=== PATIENT | male | born 1980 | race Caucasian/White ===

== ENCOUNTER 2016-06-14 20:28 | Inpatient (IN) | payer OTHER ==
[~2016-06-14] VITALS: Ht 165.1 cm; Wt 143.9 kg
[~2016-06-14 20:28] MED LIST: BISA-57 PO; DOCU-144 PO; FAMO20TA18 PO; HYDR-3498 PO; INSU100C SC; LANT3I SC; MTF1000T PO; ONDA4TAB35 PO; SIMV20TA PO
[2016-06-14] MEDS ORDERED: morphine 4 MG/ML VIAL IV STA (22:03)
[2016-06-14] MEDS ORDERED: SOD CHLORIDE 0.9% 1,000 ML IV STA (22:03)
[2016-06-14] MEDS ORDERED: ONDANSETRON 4 MG INJ IV STA (22:03)
[2016-06-14 22:42] LABS: URINE BLOOD (Dip) POC Negative (NEGATIVE)
[2016-06-14 23:13] LABS: BASOPHILS % 0.2 % (0.0-2.0); EOSINOPHILS % 0.2 % (0.0-7.0); HEMATOCRIT 40.2 % (42.0-52.0); HEMOGLOBIN 13.3 g/dl (14.0-18.0); LYMPHOCYTES # 1.3 10^3/ul (0.8-2.9); LYMPHOCYTES % 7.6 % (15.0-51.0); MEAN CORPUSCULAR HEMOGLOBIN 29.9 pg (29.0-33.0); MEAN CORPUSCULAR HGB CONC 33.2 g/dl (32.0-37.0); MEAN CORPUSCULAR VOLUME 89.9 fl (82.0-101.0); MEAN PLATELET VOLUME 9.6 fl (7.4-10.4); MONOCYTES % 5.7 % (0.0-11.0); NEUTROPHIL # 14.7 10^3/ul (1.6-7.5); NEUTROPHILS % 86.3 % (39.0-77.0); PLATELET COUNT 292 10^3/UL (140-440); RED BLOOD COUNT 4.47 10^6/ul (4.70-6.10); RED CELL DISTRIBUTION WIDTH 13.3 % (11.5-14.5)
[2016-06-14 23:26] LABS: CONDITION 1
[2016-06-14 23:28] LABS: ALBUMIN 3.6 g/dl (3.3-4.9)
[2016-06-14 23:29] LABS: POTASSIUM 3.9 mmol/L (3.5-5.1)
[2016-06-14 23:31] LABS: ALBUMIN/GLOBULIN RATIO 1.16; CREATININE 0.78 mg/dl (0.61-1.24); TOTAL PROTEIN 6.7 g/dl (6.1-8.1)
[2016-06-14 23:32] LABS: CALCIUM 9.4 mg/dl (8.4-10.2)
[2016-06-14] MEDS ORDERED: IOHEXOL 300MG/ML 150 ML BTL ONE (23:46)
--- NOTE | 2016-06-15 00:41 | RADRPT ---
PROCEDURE: CT Abdomen and Pelvis with IV contrast. CLINICAL INDICATION: Nausea and vomiting. TECHNIQUE: CT scan of the abdomen and pelvis with contrast was performed on a multidetector CT [facility]. The patient was scanned following the uncomplicated intravenous administration of 90 cc Omn ipaque-300 intravenous contrast material. Coronal and sagittal reformatted images were obtained fro m the axial source images. Images were reviewed on a high-resolution PACS workstation. Exam CTDlvol = 24 mGy and DLP = 1682 mGy-cm. COMPARISON: 10/21/2015 FINDINGS: There are multiple left upper quadrant surgical clips adjacent to the greater curvature of the stoma ch and pancreas. There is redemonstrated large ventral abdominal hernia containing both large and s mall bowel. There is dilatation of small bowel proximal to the hernia with air-fluid levels. There is a transition of dilated small bowel within the inferior aspect of the hernia consistent with a s mall bowel obstruction. There is mild small bowel wall thickening. The distal small bowel is josseline l in caliber to the cecum. The entire colon is collapsed including the transverse colon within the hernia. Appendix is normal caliber with small calcifications are residual contrast material. There is no evidence for appendicitis.. There is no evidence for diverticulitis. There is no free fluid. There is no lymphadenopathy. The liver is enlarged at 23.7 cm length.. No intrahepatic lesions are identified. The gallbladder h as been removed.. There is no definite biliary ductal dilation. Pancreas and spleen are unremarkabl e. There are no adrenal masses. The aorta is unremarkable. Kidneys are normal in appearance without hydronephrosis, mass or calculus. There is normal symmetri c homogeneous renal parenchymal enhancement. There is no perinephric collection. Ureters are of no rmal caliber in appearance. Urinary bladder is contracted. Limited evaluation lung bases unremarkable. There are degenerative changes of the lumbar spine. There is unchanged mild wedge compression fractu res of lower thoracic spine involving T11 and T12. IMPRESSION: 1. Large abdominal ventral hernia containing both small and large bowel. Associated small bowel ob struction with transition within the inferior aspect of the hernia sac. Proximal intra-abdominal sm all bowel dilatation with air-fluid levels and mild wall thickening. 2. No evidence for pneumatosis or free fluid. 3. No evidence for appendicitis or diverticulitis. 4. Enlarged fatty liver. 5. Status post cholecystectomy. 6. Unchanged mild wedge compression fractures of the lower thoracic spine. RPTAT: HMVK .Shiraz Westfall MD, Date Time Electronically viewed and signed by .Shiraz Westfall MD, on 06/15/2016 00:41 .K/
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
[2016-06-15] MEDS ORDERED: HYDROmorphONE 1 MG/ML SYG IV STA (01:10)
--- NOTE | 2016-06-15 01:21 | EN ---
Date/Time of Note Date/Time of Note DATE: 06/15/16 TIME: 01:21 ER Progress Note Patient admitted to hospitalist. Dr. Hernandez consulted for surgery RADHA SEPULVEDA Jun 15, 2016 01:21
[2016-06-15 02:55] VITALS: TEMP 98.4
[2016-06-15 04:00] VITALS: BP 118/68; PULSE 63; RESP 16; Ht 165.1 cm; Wt 143.9 kg
[2016-06-15] MEDS ORDERED: GABA100C14 PO (04:07)
[2016-06-15] MEDS ORDERED: TRAM50TA2 PO (04:07)
[2016-06-15] MEDS ORDERED: GLUCOSE GEL 15 GRAM TUBE BUCCAL PRN (04:30)
[2016-06-15] MEDS ORDERED: GLUCOSE GEL 15 GRAM TUBE PO PRN ×2 (04:30)
[2016-06-15] MEDS ORDERED: DEXTROSE 50% 50 ML SYRINGE IV PRN ×2 (04:30)
[2016-06-15] MEDS ORDERED: GLUCAGON 1 MG INJ IM PRN (04:30)
[2016-06-15] MEDS: ONDANSETRON 4 MG INJ IV PRN ×2 (04:31→12:57)
[2016-06-15] MEDS: DEXTROSE 5%-0.45% NACL 1,000 ML IV SCH ×3 (04:31→23:47)
[2016-06-15] MEDS: morphine 4 MG/ML VIAL IV PRN ×6 (04:31→20:50)
[2016-06-15] MEDS: INSULIN ASPART [NOVOLOG] 3 ML PEN SC SCH ×4 (06:00→23:47)
[2016-06-15] MEDS: ACCUCHECK XX SCH ×4 (06:04→23:47)
[2016-06-15] MEDS: LEVOFLOXACIN 500MG/D5W (PMX) 100 ML IVPB SCH (06:52)
[2016-06-15 07:50] VITALS: BP 102/55; RESP 18
[2016-06-15 08:08] LABS: BASOPHILS % 0.5 % (0.0-2.0); EOSINOPHILS # 0.1 10^3/ul (0.0-0.5); EOSINOPHILS % 1.1 % (0.0-7.0); HEMATOCRIT 37.1 % (42.0-52.0); HEMOGLOBIN 12.6 g/dl (14.0-18.0); LYMPHOCYTES % 22.8 % (15.0-51.0); MEAN CORPUSCULAR HEMOGLOBIN 30.4 pg (29.0-33.0); MEAN CORPUSCULAR HGB CONC 33.8 g/dl (32.0-37.0); MEAN CORPUSCULAR VOLUME 89.8 fl (82.0-101.0); MEAN PLATELET VOLUME 9.4 fl (7.4-10.4); MONOCYTE # 0.9 10^3/ul (0.3-0.9); MONOCYTES % 10.3 % (0.0-11.0); NEUTROPHIL # 5.7 10^3/ul (1.6-7.5); NEUTROPHILS % 65.3 % (39.0-77.0); PLATELET COUNT 268 10^3/UL (140-440); RED BLOOD COUNT 4.14 10^6/ul (4.70-6.10); RED CELL DISTRIBUTION WIDTH 13.2 % (11.5-14.5); UNCORRECTED WBC 8.7 10^3/ul (4.8-10.8); WHITE BLOOD COUNT 8.7 10^3/ul (4.8-10.8)
[2016-06-15 08:09] LABS: ALBUMIN 3.3 g/dl (3.3-4.9)
[2016-06-15 08:11] LABS: BILIRUBIN,INDIRECT 1.1 mg/dl (0-1.1); BILIRUBIN,TOTAL 1.1 mg/dl (0.2-1.3); CREATININE 0.66 mg/dl (0.61-1.24); POTASSIUM 3.5 mmol/L (3.5-5.1)
[2016-06-15 08:12] LABS: ALBUMIN/GLOBULIN RATIO 1.06; TOTAL PROTEIN 6.4 g/dl (6.1-8.1)
[2016-06-15 08:13] LABS: CALCIUM 8.6 mg/dl (8.4-10.2)
[2016-06-15 08:17] LABS: CONDITION 1
[2016-06-15] MEDS: FAMOTIDINE 20 MG INJ IV SCH ×2 (08:52→20:36)
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
--- NOTE | 2016-06-15 15:55 | PN ---
Date/Time of Note Date/Time of Note DATE: 06/15/16 TIME: 15:53 Assessment/Plan VTE Prophylaxis VTE Prophylaxis Intervention: SCD's Lines/Catheters IV [facility] Peripheral IV Urinary Cath still in place: No Assessment/Plan Chief Complaint/Hosp Course IMPRESSION: 1. Recurrent small bowel obstruction. General surgery has been consulted, NG tube, n.p.o. Follow general surgery recommendations 2. Abdominal pain secondary to above. 3. History of multiple abdominal surgeries. 4. Systemic inflammatory response syndrome with leukocytosis and tachycardia, likely stress-induced from bowel obstruction. Continue prophylactic IV antibiotics 5. History of type 2 diabetes. Continue insulin and insulin sliding scale, when patient is able to tolerate p.o. intake we will start the patient on low-carb diet 6. Dyslipidemia. 7. Morbid obesity with a BMI of 53. We will continue monitor patient closely for recommendation management treatment as clinical course Problems: Subjective 24 Hr Interval Summary Free Text/Dictation Patient continues to complain of having mild abdominal discomfort No nausea vomiting Exam/Review of Systems Vital Signs Vitals Vital Signs Date Time Temp Pulse Resp B/P Pulse Ox O2 Delivery O2 Flow Rate FiO2 06/15/16 07:50 97.8 64 18 102/55 99 06/15/16 04:00 Room Air Intake and Output 06/14/16 06/14/16 06/15/16 15:00 23:00 07:00 Intake Total 50 ml Balance 50 ml Exam General: The patient is morbidly obese, Not in acute distress. HEENT: Atraumatic, normocephalic. The pupils are equal and round . Neck: Supple with full range of motion. Chest: Normal expansion of the thorax during inspiration Lungs: Clear to auscultation bilaterally Heart: Normal S1-S2, Regular rhythm and rate. Abdomen: Soft , nontender, minimally distended , bowel sounds are present. Extremities: Normal to inspection, no edema no cyanosis Neurologic: Normal mental status,The patient is awake, alert and oriented . Results Result Diagram: 06/15/16 0707 06/15/16 0707 Results 24 hrs Laboratory Tests Test 06/14/16 20:47 06/14/16 22:43 06/14/16 23:00 06/15/16 06:01 Bedside Glucose 144 112 Bedside Urine Blood Negative Bedside Urine Glucose (UA) Negative Bedside Urine Ketones (LAB) Negative Bedside Urine Leukocyte Esterase (L Negative Bedside Urine Nitrite (LAB) Negative Bedside Urine Protein (LAB) 2+ H Bedside Urine pH (LAB) 5.5 Alanine Aminotransferase (ALT/SGPT) 42 Albumin 3.6 Albumin/Globulin Ratio 1.16 Alkaline Phosphatase 76 Anion Gap 16 Aspartate Amino Transf (AST/SGOT) 25 Basophils # 0.0 Basophils % 0.2 Blood Urea Nitrogen 12 Calcium Level 9.4 Carbon Dioxide Level 27 Chloride Level 103 Creatinine 0.78 Direct Bilirubin 0.00 Eosinophils # 0.0 Eosinophils % 0.2 Globulin 3.10 Glucose Level 119 Hematocrit 40.2 L Hemoglobin 13.3 L Indirect Bilirubin 1.0 Lipase 75 Lymphocytes # 1.3 Lymphocytes % 7.6 L Mean Corpuscular Hemoglobin 29.9 Mean Corpuscular Hemoglobin Concent 33.2 Mean Corpuscular Volume 89.9 Mean Platelet Volume 9.6 Monocytes # 1.0 H Monocytes % 5.7 Neutrophils # 14.7 H Neutrophils % 86.3 H Nucleated Red Blood Cells # 0.0 Nucleated Red Blood Cells % 0.0 Platelet Count 292 Potassium Level 3.9 Red Blood Count 4.47 L Red Cell Distribution Width 13.3 Sodium Level 142 Total Bilirubin 1.0 Total Protein 6.7 White Blood Count 17.0 #H Test 06/15/16 07:07 06/15/16 11:10 Alanine Aminotransferase (ALT/SGPT) 39 Albumin 3.3 Albumin/Globulin Ratio 1.06 Alkaline Phosphatase 71 Anion Gap 17 H Aspartate Amino Transf (AST/SGOT) 24 Basophils # 0.0 Basophils % 0.5 Blood Urea Nitrogen 11 Calcium Level 8.6 Carbon Dioxide Level 26 Chloride Level 104 Creatinine 0.66 Direct Bilirubin 0.00 Eosinophils # 0.1 Eosinophils % 1.1 Globulin 3.10 Glucose Level 99 Hematocrit 37.1 L Hemoglobin 12.6 L Indirect Bilirubin 1.1 Lymphocytes # 2.0 Lymphocytes % 22.8 Mean Corpuscular Hemoglobin 30.4 Mean Corpuscular Hemoglobin Concent 33.8 Mean Corpuscular Volume 89.8 Mean Platelet Volume 9.4 Monocytes # 0.9 Monocytes % 10.3 Neutrophils # 5.7 Neutrophils % 65.3 Nucleated Red Blood Cells # 0.0 Nucleated Red Blood Cells % 0.0 Platelet Count 268 Potassium Level 3.5 Red Blood Count 4.14 L Red Cell Distribution Width 13.2 Sodium Level 143 Total Bilirubin 1.1 Total Protein 6.4 White Blood Count 8.7 # Bedside Glucose 106 Medications Medications Current Medications Dextrose/Sodium Chloride (D5-1/2ns) 1,000 ml @ 100 mls/hr Q10H IV Last administered on 06/15/16 14:20; Admin Dose 100 MLS/HR; Start 06/15/16 at 04:00 Morphine Sulfate (morphine) 4 mg Q4H PRN IV Pain Last administered on 12:57; Admin Dose 4 MG; Start 06/15/16 at 04:00 Ondansetron HCl (Zofran Inj) 4 mg Q6H PRN IV NAUSEA AND/OR VOMITING Last administered on 06/15/16 12:57; Admin Dose 4 MG; Start 06/15/16 at 04:00 Famotidine (Pepcid Iv) 20 mg BID IV Last administered on 06/15/16 08:52; Admin Dose 20 MG; Start 06/15/16 at 09:00 Diagnostic Test (Pha) (Accucheck) 1 ea Q6 XX Last administered on 06/15/16 06: 04; Admin Dose 1 EA; Start 06/15/16 at 06:00 Insulin Aspart (Novolog Insulin Pen) NOVOLOG *MODERATE* ALGORI... Q6 SC ; Start 06/15/16 at 06:00 Miscellaneous Information 1 ea NOTE XX ; Start 06/15/16 at 04:30 Glucose (Glutose) 15 gm Q15M PRN PO DECREASED GLUCOSE; Start 06/15/16 at 04:30 Glucose (Glutose) 22.5 gm Q15M PRN PO DECREASED GLUCOSE; Start 06/15/16 at 04: 30 Dextrose (D50w Syringe) 25 ml Q15M PRN IV DECREASED GLUCOSE; Start 06/15/16 at 04:30 Dextrose (D50w Syringe) 50 ml Q15M PRN IV DECREASED GLUCOSE; Start 06/15/16 at 04:30 Glucagon (Glucagen) 1 mg Q15M PRN IM DECREASED GLUCOSE; Start 06/15/16 at 04:30 Glucose 15 gm 15 gm Q15M PRN BUCCAL DECREASED GLUCOSE; Start 06/15/16 at 04:30 Levofloxacin/ Dextrose (Levaquin 500mg/ D5W 100 ml (Pmx)) 100 ml @ 100 mls/hr Q24H IVPB Last administered on 1/23/17at 06:52; Admin Dose 100 MLS/HR; Start at 07:00 ROSALIND RODRIGUES MD Jun 15, 2016 15:55
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
[2016-06-15 19:30] VITALS: BP 132/63; RESP 18
[2016-06-16] MEDS: morphine 4 MG/ML VIAL IV PRN ×4 (04:54→22:00)
[2016-06-16] MEDS: ONDANSETRON 4 MG INJ IV PRN (04:59)
[2016-06-16] MEDS: INSULIN ASPART [NOVOLOG] 3 ML PEN SC SCH ×3 (06:00→17:30)
[2016-06-16] MEDS: LEVOFLOXACIN 500MG/D5W (PMX) 100 ML IVPB SCH (06:08)
[2016-06-16] MEDS: ACCUCHECK XX SCH ×3 (06:08→17:30)
[2016-06-16 08:05] VITALS: BP 122/62; RESP 18
[2016-06-16] MEDS: FAMOTIDINE 20 MG INJ IV SCH ×2 (08:12→20:43)
--- NOTE | 2016-06-16 09:42 | PN ---
Date/Time of Note Date/Time of Note DATE: 06/16/16 TIME: 09:39 Assessment/Plan Lines/Catheters IV Catheter Type (from Nrs): Peripheral IV Martin in Place (from Nrs): No Assessment/Plan Assessment/Plan 34-year-old super morbidly obese male with a complicated medical and surgical history who presents with recurrent small bowel obstruction. * I personally reviewed the CT scan images. It appears that the obstructive process may be proximal to or within the hernia sac. There does not appear to be signs of complete obstruction, or bowel compromise. Given that the hernia does not seem to be acutely incarcerated the obstruction is likely due to adhesions within the hernia sac. * I would continue with nasogastric tube decompression to low wall suction * Continue IV fluid hydration and pain control * The Patient has a very complicated surgical clinical picture. He is high risk for surgery and any attempt at surgical intervention operation requires expertise in complex abdominal wall repair and morbid obesity. In fact, the patient will greatly benefit from surgical intervention for his obesity in the form of weight loss surgery which should be considered as an option prior to hernia repair in an elective setting. * Currently, there is no indication for acute surgical intervention. Hopefully, the patient will improve with nonoperative management, so that we can get the patient to stabilize and discharge home, after which, he will have to follow-up with a hernia specialist and a bariatric surgeon for eventual elective surgical intervention. Again, this should be performed by multidisciplinary surgical specialists and at an academic or tertiary care center. * Will order a small bowel follow-through for diagnostic and therapeutic purposes. The above was discussed with the patient, nurse and primary care team in full detail. Further recommendations will be made based on patient's clinical course. Subjective 24 Hr Interval Summary Pain controlled with medications. No BM or flatus. NGT output since insertion 800cc bilious. Afebrile. Exam/Review of Systems Vital Signs Vitals Vital Signs Date Time Temp Pulse Resp B/P Pulse Ox O2 Delivery O2 Flow Rate FiO2 06/16/16 08:05 98.6 60 18 122/62 94 06/15/16 04:00 Room Air Intake and Output 06/15/16 06/15/16 06/16/16 15:00 23:00 07:00 Intake Total 1050 ml 75 ml 1450 ml Output Total 400 ml Balance 1050 ml 75 ml 1050 ml Exam Free Text/Dictation GENERAL: Super morbidly obese. Awake, alert, and oriented 3. In no acute distress. RESPIRATORY: Clear to auscultation bilaterally CARDIOVASCULAR: S1-S2 regular rate and rhythm no murmurs appreciated. ABDOMEN: Abdomen is soft, mildly tender to palpation in the periumbilical area. There are well-healed midline incision from the xiphoid down to below the umbilicus which is healed by secondary intention in the upper midline portion. There is what appears to be a large midline hernia defect without any incarceration. There are no peritoneal signs or guarding. EXTREMITIES: Free range of motion 4. No cyanosis, edema, or clubbing Results Result Diagram: 06/15/16 0707 06/15/16 0707 SOFIYA HENNING MD Jun 16, 2016 09:42
[2016-06-16] MEDS: DEXTROSE 5%-0.45% NACL 1,000 ML IV SCH ×3 (12:05→23:38)
--- NOTE | 2016-06-16 12:09 | PN ---
Date/Time of Note Date/Time of Note DATE: 06/16/16 TIME: 12:08 Assessment/Plan VTE Prophylaxis VTE Prophylaxis Intervention: SCD's Lines/Catheters IV [facility] Peripheral IV Urinary Cath still in place: No Assessment/Plan Chief Complaint/Hosp Course IMPRESSION: 1. Recurrent small bowel obstruction. General surgery has been consulted, NG tube, n.p.o. Follow general surgery recommendations 2. Abdominal pain secondary to above. 3. History of multiple abdominal surgeries. 4. Systemic inflammatory response syndrome with leukocytosis and tachycardia, likely stress-induced from bowel obstruction. Continue prophylactic IV antibiotics 5. History of type 2 diabetes. Continue insulin and insulin sliding scale, when patient is able to tolerate p.o. intake we will start the patient on low-carb diet 6. Dyslipidemia. 7. Morbid obesity with a BMI of 53. We will continue monitor patient closely for recommendation management treatment as clinical course Problems: Subjective 24 Hr Interval Summary Free Text/Dictation Patient denies of any chest pain or shortness of breath Abdominal discomfort has been improving No bowel movement today NG tube in place Exam/Review of Systems Vital Signs Vitals Vital Signs Date Time Temp Pulse Resp B/P Pulse Ox O2 Delivery O2 Flow Rate FiO2 06/16/16 08:05 98.6 60 18 122/62 94 06/15/16 04:00 Room Air Intake and Output 06/15/16 06/15/16 06/16/16 15:00 23:00 07:00 Intake Total 1050 ml 75 ml 1450 ml Output Total 400 ml 400 ml Balance 1050 ml -325 ml 1050 ml Exam General: The patient is morbidly obese, Not in acute distress. NG tube in place HEENT: Atraumatic, normocephalic. The pupils are equal and round . Neck: Supple with full range of motion. Chest: Normal expansion of the thorax during inspiration Lungs: Clear to auscultation bilaterally Heart: Normal S1-S2, Regular rhythm and rate. Abdomen: Abdominal contour is morbidly obese soft , nontender, nondistended , bowel sounds distant secondary to body habitus although are present. Extremities: Normal to inspection, no edema no cyanosis Neurologic: Normal mental status,The patient is awake, alert and oriented . Results Result Diagram: 06/15/16 0707 06/15/16 0707 Results 24 hrs Laboratory Tests Test 06/15/16 17:04 06/15/16 23:44 06/16/16 06:06 Bedside Glucose 93 99 97 Medications Medications Current Medications Dextrose/Sodium Chloride (D5-1/2ns) 1,000 ml @ 100 mls/hr Q10H IV Last administered on 06/16/16 12:05; Admin Dose 100 MLS/HR; Start 06/15/16 at 04:00 Morphine Sulfate (morphine) 4 mg Q4H PRN IV Pain Last administered on 04:54; Admin Dose 4 MG; Start 06/15/16 at 04:00 Ondansetron HCl (Zofran Inj) 4 mg Q6H PRN IV NAUSEA AND/OR VOMITING Last administered on 06/16/16 04:59; Admin Dose 4 MG; Start 06/15/16 at 04:00 Famotidine (Pepcid Iv) 20 mg BID IV Last administered on 06/16/16 08:12; Admin Dose 20 MG; Start 06/15/16 at 09:00 Diagnostic Test (Pha) (Accucheck) 1 ea Q6 XX Last administered on 06/16/16 06: 08; Admin Dose 1 EA; Start 06/15/16 at 06:00 Insulin Aspart (Novolog Insulin Pen) NOVOLOG *MODERATE* ALGORI... Q6 SC ; Start 06/15/16 at 06:00 Miscellaneous Information 1 ea NOTE XX ; Start 06/15/16 at 04:30 Glucose (Glutose) 15 gm Q15M PRN PO DECREASED GLUCOSE; Start 06/15/16 at 04:30 Glucose (Glutose) 22.5 gm Q15M PRN PO DECREASED GLUCOSE; Start 06/15/16 at 04: 30 Dextrose (D50w Syringe) 25 ml Q15M PRN IV DECREASED GLUCOSE; Start 06/15/16 at 04:30 Dextrose (D50w Syringe) 50 ml Q15M PRN IV DECREASED GLUCOSE; Start 06/15/16 at 04:30 Glucagon (Glucagen) 1 mg Q15M PRN IM DECREASED GLUCOSE; Start 06/15/16 at 04:30 Glucose 15 gm 15 gm Q15M PRN BUCCAL DECREASED GLUCOSE; Start 06/15/16 at 04:30 Levofloxacin/ Dextrose (Levaquin 500mg/ D5W 100 ml (Pmx)) 100 ml @ 100 mls/hr Q24H IVPB Last administered on 06/16/16 06:08; Admin Dose 100 MLS/HR; Start at 07:00 ROSALIND RODRIGUES MD Jun 16, 2016 12:09
[2016-06-16 12:47] LABS: BASOPHILS % 0.7 % (0.0-2.0); EOSINOPHILS # 0.1 10^3/ul (0.0-0.5); EOSINOPHILS % 2.1 % (0.0-7.0); HEMATOCRIT 40.4 % (42.0-52.0); HEMOGLOBIN 13.4 g/dl (14.0-18.0); LYMPHOCYTES # 1.5 10^3/ul (0.8-2.9); LYMPHOCYTES % 22.7 % (15.0-51.0); MEAN CORPUSCULAR HEMOGLOBIN 29.8 pg (29.0-33.0); MEAN CORPUSCULAR VOLUME 90.3 fl (82.0-101.0); MEAN PLATELET VOLUME 10.1 fl (7.4-10.4); MONOCYTE # 0.5 10^3/ul (0.3-0.9); MONOCYTES % 7.6 % (0.0-11.0); NEUTROPHIL # 4.5 10^3/ul (1.6-7.5); NEUTROPHILS % 66.9 % (39.0-77.0); PLATELET COUNT 221 10^3/UL (140-440); RED BLOOD COUNT 4.48 10^6/ul (4.70-6.10); RED CELL DISTRIBUTION WIDTH 12.8 % (11.5-14.5); UNCORRECTED WBC 6.7 10^3/ul (4.8-10.8); WHITE BLOOD COUNT 6.7 10^3/ul (4.8-10.8)
[2016-06-16 12:54] LABS: POTASSIUM 3.8 mmol/L (3.5-5.1)
[2016-06-16 12:55] LABS: CONDITION 1
[2016-06-16 12:57] LABS: CREATININE 0.75 mg/dl (0.61-1.24)
[2016-06-16 12:58] LABS: CALCIUM 9.1 mg/dl (8.4-10.2)
[2016-06-16 19:45] VITALS: BP 113/58; RESP 19
[2016-06-17] MEDS: morphine 4 MG/ML VIAL IV PRN ×6 (02:18→21:10)
[2016-06-17 05:15] LABS: BASOPHILS % 0.7 % (0.0-2.0); EOSINOPHILS # 0.1 10^3/ul (0.0-0.5); EOSINOPHILS % 2.4 % (0.0-7.0); HEMATOCRIT 36.8 % (42.0-52.0); HEMOGLOBIN 12.3 g/dl (14.0-18.0); LYMPHOCYTES # 1.7 10^3/ul (0.8-2.9); LYMPHOCYTES % 29.4 % (15.0-51.0); MEAN CORPUSCULAR HEMOGLOBIN 30.3 pg (29.0-33.0); MEAN CORPUSCULAR HGB CONC 33.5 g/dl (32.0-37.0); MEAN CORPUSCULAR VOLUME 90.3 fl (82.0-101.0); MEAN PLATELET VOLUME 9.3 fl (7.4-10.4); MONOCYTE # 0.7 10^3/ul (0.3-0.9); NEUTROPHIL # 3.3 10^3/ul (1.6-7.5); NEUTROPHILS % 55.5 % (39.0-77.0); PLATELET COUNT 244 10^3/UL (140-440); RED BLOOD COUNT 4.07 10^6/ul (4.70-6.10); UNCORRECTED WBC 5.9 10^3/ul (4.8-10.8); WHITE BLOOD COUNT 5.9 10^3/ul (4.8-10.8)
[2016-06-17 05:17] LABS: CONDITION 1
[2016-06-17 05:18] LABS: POTASSIUM 3.6 mmol/L (3.5-5.1)
[2016-06-17 05:21] LABS: CREATININE 0.86 mg/dl (0.61-1.24)
[2016-06-17] MEDS: INSULIN ASPART [NOVOLOG] 3 ML PEN SC SCH ×5 (05:42→21:00)
[2016-06-17] MEDS: ACCUCHECK XX SCH ×5 (05:43→21:00)
[2016-06-17] MEDS: LEVOFLOXACIN 500MG/D5W (PMX) 100 ML IVPB SCH (06:15)
[2016-06-17] MEDS: ONDANSETRON 4 MG INJ IV PRN ×2 (07:36→12:06)
[2016-06-17 07:38] VITALS: BP 127/59; RESP 18
[2016-06-17] MEDS ORDERED: DIATR MEGLU/DIATRIZOATE SODIUM 120 ML BTL ONE (08:23)
[2016-06-17] MEDS: FAMOTIDINE 20 MG INJ IV SCH ×2 (09:52→21:11)
[2016-06-17] MEDS: DEXTROSE 5%-0.45% NACL 1,000 ML IV SCH (11:11)
[2016-06-17] MEDS ORDERED: ONDANSETRON 4 MG INJ IV STA (11:59)
[2016-06-17] MEDS ORDERED: morphine 4 MG/ML VIAL IV STA (11:59)
--- NOTE | 2016-06-17 13:33 | PN ---
Date/Time of Note Date/Time of Note DATE: 06/17/16 TIME: 13:30 Assessment/Plan Lines/Catheters IV Catheter Type (from Nrs): Peripheral IV Martin in Place (from Nrs): No Assessment/Plan Assessment/Plan 34-year-old super morbidly obese male with a complicated medical and surgical history who presents with recurrent small bowel obstruction. * I personally reviewed the CT scan images. It appears that the obstructive process may be proximal to or within the hernia sac. There does not appear to be signs of complete obstruction, or bowel compromise. Given that the hernia does not seem to be acutely incarcerated the obstruction is likely due to adhesions within the hernia sac. * Continue IV fluid hydration and pain control * The Patient has a very complicated surgical clinical picture. He is high risk for surgery and any attempt at surgical intervention operation requires expertise in complex abdominal wall repair and morbid obesity. In fact, the patient will greatly benefit from surgical intervention for his obesity in the form of weight loss surgery which should be considered as an option prior to hernia repair in an elective setting. * Currently, there is no indication for acute surgical intervention. Hopefully, the patient will improve with nonoperative management, so that we can get the patient to stabilize and discharge home, after which, he will have to follow-up with a hernia specialist and a bariatric surgeon for eventual elective surgical intervention. Again, this should be performed by multidisciplinary surgical specialists and at an academic or tertiary care center. * SBFT shows contrast to rectum * D/C NGT * Start clear liquids The above was discussed with the patient, nurse and primary care team in full detail. Further recommendations will be made based on patient's clinical course. Subjective 24 Hr Interval Summary Abdominal pain improved. Having BMs. NGT output minimal. Afebrile. Exam/Review of Systems Vital Signs Vitals Vital Signs Date Time Temp Pulse Resp B/P Pulse Ox O2 Delivery O2 Flow Rate FiO2 06/17/16 07:38 97.9 63 18 127/59 97 06/15/16 04:00 Room Air Intake and Output 06/16/16 06/16/16 06/17/16 15:00 23:00 07:00 Intake Total 475 ml 40 ml Output Total 600 ml Balance 475 ml -560 ml Exam Free Text/Dictation GENERAL: Super morbidly obese. Awake, alert, and oriented 3. In no acute distress. RESPIRATORY: Clear to auscultation bilaterally CARDIOVASCULAR: S1-S2 regular rate and rhythm no murmurs appreciated. ABDOMEN: Abdomen is soft, mildly tender to palpation in the periumbilical area. There are well-healed midline incision from the xiphoid down to below the umbilicus which is healed by secondary intention in the upper midline portion. There is what appears to be a large midline hernia defect without any incarceration. There are no peritoneal signs or guarding. EXTREMITIES: Free range of motion 4. No cyanosis, edema, or clubbing Results Result Diagram: 06/17/16 0415 06/17/16 0415 SOFIYA HENNING MD Jun 17, 2016 13:33
--- NOTE | 2016-06-17 14:49 | RADRPT ---
PROCEDURE: Small bowel follow-through. CLINICAL INDICATION: Abdomen pain. TECHNIQUE: Water-soluble contrast was administered by the nasogastric tube and several spot and ov erhead radiographs of the abdomen were obtained. COMPARISON: Small bowel follow-through dated 10/15/2015. FINDINGS: On the preliminary radiograph, the nasogastric tube is present with the tip in the stomach. Multipl e surgical clips are present in the abdomen. There is no small bowel displacement or mass. The small bowel folds are normal. There is no evidence of obstruction. Transit time is normal with contrast in the colon at 4.5 hours. Spot views of the terminal ileum are unremarkable with no mass or other abnormality. IMPRESSION: 1. Normal small bowel follow-through. RPTAT: QQ .Sam Alcala MD, Date Time Electronically viewed and signed by .Sam Alcala MD, on 06/17/2016 14:48 .R/
--- NOTE | 2016-06-17 15:58 | PDOCDIS ---
Discharge Instructions CONDITION Patient Condition: Good HOME CARE INSTRUCTIONS: Special Diet: Soft, low-calorie and advance as tolerated ACTIVITY: Activity Restrictions: No Restrictions FOLLOW UP/APPOINTMENTS Appointments Follow-up with primary care physician as outpatient Follow up with general surgeon as outpatient ROSALIND RODIRGUES MD Jun 17, 2016 15:58
--- NOTE | 2016-06-17 16:00 | PN ---
Date/Time of Note Date/Time of Note DATE: 06/17/16 TIME: 15:58 Assessment/Plan VTE Prophylaxis VTE Prophylaxis Intervention: SCD's Lines/Catheters IV C[facility]ter Type (from [facility]): Peripheral IV Urinary Cath still in place: No Assessment/Plan Chief Complaint/Hosp Course IMPRESSION: 1. Recurrent small bowel obstruction. General surgery has been consulted, NG tube has been removed, continue full liquid diet and advance as tolerated Follow general surgery recommendations 2. Abdominal pain secondary to above. 3. History of multiple abdominal surgeries. 4. Systemic inflammatory response syndrome with leukocytosis and tachycardia, likely stress-induced from bowel obstruction. Continue prophylactic IV antibiotics 5. History of type 2 diabetes. Continue insulin and insulin sliding scale, when patient is able to tolerate p.o. intake we will start the patient on low-carb diet 6. Dyslipidemia. 7. Morbid obesity with a BMI of 53. We will continue monitor patient closely for recommendation management treatment as clinical course Plan to discharge home tomorrow Problems: Subjective 24 Hr Interval Summary Free Text/Dictation Positive bowel movement today Able to tolerate oral intake this morning although unfortunately had one episode of vomiting Denies of any abdominal discomfort at this time Exam/Review of Systems Vital Signs Vitals Vital Signs Date Time Temp Pulse Resp B/P Pulse Ox O2 Delivery O2 Flow Rate FiO2 06/17/16 07:38 97.9 63 18 127/59 97 06/15/16 04:00 Room Air Intake and Output 06/16/16 06/16/16 06/17/16 15:00 23:00 07:00 Intake Total 475 ml 40 ml Output Total 600 ml Balance 475 ml -560 ml Exam General: The patient is morbidly obese, Not in acute distress. HEENT: Atraumatic, normocephalic. The pupils are equal and round . Neck: Supple with full range of motion. Chest: Normal expansion of the thorax during inspiration Lungs: Clear to auscultation bilaterally Heart: Normal S1-S2, Regular rhythm and rate. Abdomen: Soft , nontender, nondistended , bowel sounds are present. Abdominal wall scar from prior surgeries Extremities: Normal to inspection, no edema no cyanosis Neurologic: Normal mental status,The patient is awake, alert and oriented . Results Result Diagram: 06/17/16 0415 06/17/16 0415 Results 24 hrs Laboratory Tests Test 06/16/16 17:29 06/17/16 00:23 06/17/16 04:15 06/17/16 05:41 Bedside Glucose 100 86 86 Anion Gap 14 Basophils # 0.0 Basophils % 0.7 Blood Urea Nitrogen 6 L Calcium Level 9.0 Carbon Dioxide Level 29 Chloride Level 104 Creatinine 0.86 Eosinophils # 0.1 Eosinophils % 2.4 Glucose Level 87 Hematocrit 36.8 L Hemoglobin 12.3 L Lymphocytes # 1.7 Lymphocytes % 29.4 Mean Corpuscular Hemoglobin 30.3 Mean Corpuscular Hemoglobin Concent 33.5 Mean Corpuscular Volume 90.3 Mean Platelet Volume 9.3 Monocytes # 0.7 Monocytes % 12.0 H Neutrophils # 3.3 Neutrophils % 55.5 Nucleated Red Blood Cells # 0.0 Nucleated Red Blood Cells % 0.0 Platelet Count 244 Potassium Level 3.6 Red Blood Count 4.07 L Red Cell Distribution Width 13.0 Sodium Level 143 White Blood Count 5.9 Test 06/17/16 11:14 Bedside Glucose 101 Medications Medications Current Medications Morphine Sulfate (morphine) 4 mg Q4H PRN IV Pain Last administered on 11:08; Admin Dose 4 MG; Start 06/15/16 at 04:00 Ondansetron HCl (Zofran Inj) 4 mg Q6H PRN IV NAUSEA AND/OR VOMITING Last administered on 06/17/16 07:36; Admin Dose 4 MG; Start 06/15/16 at 04:00 Famotidine (Pepcid Iv) 20 mg BID IV Last administered on 06/17/16 09:52; Admin Dose 20 MG; Start 06/15/16 at 09:00 Diagnostic Test (Pha) (Accucheck) 1 ea Q6 XX Last administered on 06/17/16 12: 07; Admin Dose 1 EA; Start 06/15/16 at 06:00; Stop 06/17/16 at 17:35 Insulin Aspart (Novolog Insulin Pen) NOVOLOG *MODERATE* ALGORI... Q6 SC ; Start 06/15/16 at 06:00 Miscellaneous Information 1 ea NOTE XX ; Start 06/15/16 at 04:30 Glucose (Glutose) 15 gm Q15M PRN PO DECREASED GLUCOSE; Start 06/15/16 at 04:30 Glucose (Glutose) 22.5 gm Q15M PRN PO DECREASED GLUCOSE; Start 06/15/16 at 04: 30 Dextrose (D50w Syringe) 25 ml Q15M PRN IV DECREASED GLUCOSE; Start 06/15/16 at 04:30 Dextrose (D50w Syringe) 50 ml Q15M PRN IV DECREASED GLUCOSE; Start 06/15/16 at 04:30 Glucagon (Glucagen) 1 mg Q15M PRN IM DECREASED GLUCOSE; Start 06/15/16 at 04:30 Glucose 15 gm 15 gm Q15M PRN BUCCAL DECREASED GLUCOSE; Start 06/15/16 at 04:30 Levofloxacin/ Dextrose 100 ml @ 100 mls/hr Q24H IVPB Last administered on 06/17t 06:15; Admin Dose 100 MLS/HR; Start 06/15/16 at 07:00 Sodium Chloride (NS) 1,000 ml @ 100 mls/hr Q10H IV ; Start 06/17/16 at 16:00 ROSALIND RODRIGUES MD Jun 17, 2016 16:00
[2016-06-17] MEDS: SOD CHLORIDE 0.9% 1,000 ML IV SCH (16:26)
[2016-06-17 19:50] VITALS: BP 117/67; RESP 18
[2016-06-18] MEDS ORDERED: ACCUCHECK XX SCH (02:00)
[2016-06-18] MEDS: morphine 4 MG/ML VIAL IV PRN ×3 (02:32→11:16)
[2016-06-18] MEDS: SOD CHLORIDE 0.9% 1,000 ML IV SCH ×2 (02:32→12:00)
[2016-06-18] MEDS: LEVOFLOXACIN 500MG/D5W (PMX) 100 ML IVPB SCH (06:23)
[2016-06-18] MEDS: ACCUCHECK XX SCH ×2 (07:30→12:00)
[2016-06-18 07:42] VITALS: BP 116/60; RESP 16
[2016-06-18] MEDS: INSULIN ASPART [NOVOLOG] 3 ML PEN SC SCH ×2 (08:00→12:00)
[2016-06-18] MEDS: FAMOTIDINE 20 MG INJ IV SCH (08:17)
--- NOTE | 2016-06-18 09:54 | PN ---
Date/Time of Note Date/Time of Note DATE: 06/18/16 TIME: 09:51 Assessment/Plan Lines/Catheters IV Catheter Type (from [facility]): Peripheral IV Martin in Place (from [facility]): No Assessment/Plan Assessment/Plan 34-year-old super morbidly obese male with a complicated medical and surgical history who presents with recurrent small bowel obstruction. * Resolved * Advance to regular diet. Advised small frequent meals. * The Patient has a very complicated surgical clinical picture. He is high risk for surgery and any attempt at surgical intervention operation requires expertise in complex abdominal wall repair and morbid obesity. In fact, the patient will greatly benefit from surgical intervention for his obesity in the form of weight loss surgery which should be considered as an option prior to hernia repair in an elective setting. * Currently, there is no indication for acute surgical intervention. Hopefully, the patient will improve with nonoperative management, so that we can get the patient to stabilize and discharge home, after which, he will have to follow-up with a hernia specialist and a bariatric surgeon for eventual elective surgical intervention. Again, this should be performed by multidisciplinary surgical specialists and at an academic or tertiary care center. * Surgically stable for d/c home. * F/U with bariatric surgeon for weight loss surgery evaluation The above was discussed with the patient, nurse and primary care team in full detail. Subjective 24 Hr Interval Summary Feeling much better. Tolerating clears. Denies abdominal pain. Afebrile. Multiple BMs Exam/Review of Systems Vital Signs Vitals Vital Signs Date Time Temp Pulse Resp B/P Pulse Ox O2 Delivery O2 Flow Rate FiO2 06/18/16 07:42 98.1 60 16 116/60 98 06/15/16 04:00 Room Air Intake and Output 06/17/16 06/17/16 06/18/16 15:00 23:00 07:00 Intake Total 100 ml 2320 ml 1510 ml Balance 100 ml 2320 ml 1510 ml Exam Free Text/Dictation GENERAL: Super morbidly obese. Awake, alert, and oriented 3. In no acute distress. RESPIRATORY: Clear to auscultation bilaterally CARDIOVASCULAR: S1-S2 regular rate and rhythm no murmurs appreciated. ABDOMEN: Abdomen is soft, non-tender EXTREMITIES: Free range of motion 4. No cyanosis, edema, or clubbing Results Result Diagram: 06/17/16 0415 06/17/16 0415 SOFIYA HENNING MD Jun 18, 2016 09:54
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
== END 2016-06-18 15:03 | disposition home or self-care (01) | DRG 394 ==
LOC: FTE 20:28 → PP2 06-15 01:13
PROVIDERS: ADMIT Internal Medicine; ATTEND Internal Medicine
DX: K43.6 Other and unspecified ventral hernia with obstruction, without gangrene (principal); Z68.43 Body mass index [BMI] 50.0-59.9, adult; R65.10 Systemic inflammatory response syndrome (SIRS) of non-infectious origin without acute organ dysfunction; E66.01 Morbid (severe) obesity due to excess calories; E78.5 Hyperlipidemia, unspecified; E11.9 Type 2 diabetes mellitus without complications; I10 Essential (primary) hypertension; Z79.4 Long term (current) use of insulin
CPT/HCPCS: 74177; 74250; 80048; 80053; 81003; 82962; 83690; 85025; 96374; 96375; J1170; J1815; J1956; J2270; J2405; J7030; J7042; Q9967

== ENCOUNTER 2017-03-02 12:04 | Emergency (ER) | payer OTHER ==
[~2017-03-02] VITALS: Ht 160 cm; Wt 148.0 kg
[~2017-03-02 12:04] MED LIST changes: +GABA100C14 PO
[2017-03-02 12:06] VITALS: Ht 160 cm; Wt 148.0 kg
[2017-03-02] MEDS ORDERED: ONDANSETRON 4 MG INJ IV STA (13:14)
[2017-03-02] MEDS ORDERED: morphine 4 MG/ML VIAL IV STA (13:14)
[2017-03-02 13:34] LABS: BASOPHILS % 0.5 % (0.0-2.0); EOSINOPHILS # 0.2 10^3/ul (0.0-0.5); HEMATOCRIT 41.6 % (42.0-52.0); HEMOGLOBIN 14.1 g/dl (14.0-18.0); MEAN CORPUSCULAR HEMOGLOBIN 30.7 pg (29.0-33.0); MEAN CORPUSCULAR HGB CONC 33.9 g/dl (32.0-37.0); MEAN CORPUSCULAR VOLUME 90.4 fl (82.0-101.0); MEAN PLATELET VOLUME 10.3 fl (7.4-10.4); MONOCYTE # 0.8 10^3/ul (0.3-0.9); MONOCYTES % 9.3 % (0.0-11.0); NEUTROPHIL # 5.4 10^3/ul (1.6-7.5); NEUTROPHILS % 63.7 % (39.0-77.0); PLATELET COUNT 304 10^3/UL (140-415); WHITE BLOOD COUNT 8.4 10^3/ul (4.8-10.8)
[2017-03-02 13:56] LABS: ALBUMIN 3.8 g/dl (3.3-4.9); ALBUMIN/GLOBULIN RATIO 0.88; BILIRUBIN,INDIRECT 0.7 mg/dl (0-1.1); BILIRUBIN,TOTAL 0.7 mg/dl (0.2-1.3); CALCIUM 9.5 mg/dl (8.4-10.2); CREATININE 0.91 mg/dl (0.61-1.24); POTASSIUM 4.3 mmol/L (3.5-5.1); TOTAL PROTEIN 8.1 g/dl (6.1-8.1)
--- NOTE | 2017-03-02 14:32 | RADRPT ---
PROCEDURE: CT Abdomen and pelvis without contrast. CLINICAL INDICATION: Abdominal pain TECHNIQUE: CT scan of the abdomen and pelvis without contrast was performed on a multidetector hig h-resolution CT scan. . Coronal and sagittal reformatted images were obtained from the axial [facility] e images. Standard CT scan of the abdomen pelvis without contrast protocols were performed. The total exam CTDI equals 23.8 mGy and the total exam DLP equals 1591.56 mGy-cm. One or more of the following dose reduction techniques were used: - Automated exposure control. - Adjustment of the mA and/or kV according to patient size. Use of iterative reconstruction technique. COMPARISON: CT abdomen pelvis 06/14/2016 FINDINGS: Redemonstration of the large mid to superior ventral abdominal wall hernia containing omental fat an d bowel. Note there is no evidence of large or small bowel dilatation. Specifically no evidence of m echanical bowel obstruction. No evidence of strangulation. The stomach, small bowel, large bowel and appendix are unremarkable. Negative for intra-abdominal free air, free fluid, abscesses or lymphadenopathy. Status post cholecystectomy. No evidence biliary ductal dilation. Surgical clips are again noted in the left upper quadrant of the abdomen. The liver spleen pancreas adrenal glands are unremarkable. No evidence of calcified renal calculi, h ydronephrosis or intra renal masses bilaterally. Urinary bladder is unremarkable. Prostate unremarka ble. Aorta unremarkable. Lung bases are unremarkable. Degenerative changes lower thoracic and lumbar spin e but no acute osseous findings are osteoblastic/osteolytic lesions. IMPRESSION: 1. Redemonstration of large ventral abdominal wall hernia containing omental fat and bowel but no e vidence of bowel obstruction or strangulation. 2. Status post cholecystectomy without biliary ductal dilation. 3. No evidence of gastrointestinal disease. 4. Negative for intra-abdominal free air fluid abscesses or lymphadenopathy. RPTAT:AAJJ Physician Carito Date Time Electronically viewed and signed by Physician Carito on 03/02/2017 14:32 BM/
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
[2017-03-02] MEDS ORDERED: SOD CHLORIDE 0.9% 500 ML IV ONE (15:00)
[2017-03-02 15:07] LABS: URINE BLOOD (Dip) POC 1+ (NEGATIVE)
[2017-03-02 15:24] LABS: ADD UMIC YES; UR ASCORBIC ACID NEGATIVE (NEGATIVE); UR BILIRUBIN (Dip) NEGATIVE (NEGATIVE); UR BLOOD (Dip) 1+ mg/dL (NEGATIVE); UR CLARITY CLEAR (CLEAR); UR COLOR YELLOW (YELLOW); UR GLUCOSE (Dip) 3+ mg/dL (NEGATIVE); UR KETONES (Dip) NEGATIVE (NEGATIVE); UR LEUKOCYTE ESTERASE (Dip) NEGATIVE Leu/ul (NEGATIVE); UR MUCUS FEW /HPF (NONE SEEN); UR NITRITE (Dip) NEGATIVE (NEGATIVE); UR RBC 0 /HPF (0-5); UR TOTAL PROTEIN (Dip) 1+ mg/dl (NEGATIVE); UR UROBILINOGEN (Dip) 1+ mg/dL (NEGATIVE)
[2017-03-02] MEDS ORDERED: SULF1TAB31 PO (15:36)
[2017-03-02] MEDS ORDERED: CEPH-443 PO (15:37)
[2017-03-02] MEDS ORDERED: NAPR-260 PO (15:37)
[2017-03-02] MEDS ORDERED: ONDA4TAB8 PO (15:37)
== END 2017-03-02 15:59 | disposition home or self-care (01) ==
LOC: FTE 12:04
DX: R10.84 Generalized abdominal pain (principal); L02.419 Cutaneous abscess of limb, unspecified; E11.9 Type 2 diabetes mellitus without complications; Z79.4 Long term (current) use of insulin; Z79.84 Long term (current) use of oral hypoglycemic drugs
CPT/HCPCS: 74176; 80053; 81001; 82962; 83690; 85025; 96374; 96375; J2270; J2405; Z7502; 81003

== ENCOUNTER 2017-03-28 15:59 | Emergency (ER) | payer OTHER ==
[~2017-03-28] VITALS: Wt 165.0 kg
[~2017-03-28 15:59] MED LIST changes: +CEPH-443 PO; +NAPR-260 PO; +ONDA4TAB8 PO; +SULF1TAB31 PO
[2017-03-28] MEDS ORDERED: CEFTRIAXONE 250 MG INJ IM ONE (16:30)
[2017-03-28] MEDS ORDERED: AZITHROMYCIN 250 MG TAB PO ONE (16:30)
[2017-03-28] MEDS ORDERED: SOD CHLORIDE 0.9% 1,000 ML IV STA ×2 (16:52→17:37)
[2017-03-28] MEDS ORDERED: CEFTRIAXONE 500 MG in SOD CHLORIDE 0.9% 50 ML IVPB ONE (17:30)
[2017-03-28] MEDS ORDERED: CEFTRIAXONE 250 MG INJ IVPB ONE (17:30)
[2017-03-28] MEDS ORDERED: INSULIN REGULAR, HUMAN 100 UNIT/1 ML 3ML VIAL SC ONE (18:00)
[2017-03-28] MEDS ORDERED: CIPR500T4 PO (19:33)
[2017-03-28] MEDS ORDERED: CLOT30CR24 TOP (19:33)
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
[2017-03-28 20:10] VITALS: BP 137/80; PULSE 77; RESP 20
== END 2017-03-28 20:11 | disposition home or self-care (01) ==
LOC: FTE 15:59
DX: N48.1 Balanitis (principal); N34.2 Other urethritis; E11.65 Type 2 diabetes mellitus with hyperglycemia; Z79.4 Long term (current) use of insulin; Z79.84 Long term (current) use of oral hypoglycemic drugs
CPT/HCPCS: 36415; 80053; 81001; 82962; 85025; 96372; 96374; J0696; J1815; J7030; Z7502; Z7610

== ENCOUNTER 2017-04-07 21:13 | Emergency (ER) | payer SELFPAY ==
[~2017-04-07] VITALS: Wt 140.2 kg
[~2017-04-07 21:13] MED LIST changes: +CIPR500T4 PO; +CLOT30CR24 TOP
== END 2017-04-08 03:11 | disposition left against medical advice (07) ==
LOC: FTE 21:13
DX: Z53.21 Procedure and treatment not carried out due to patient leaving prior to being seen by health care provider (principal)

== ENCOUNTER 2017-05-06 18:31 | Emergency (ER) | payer OTHER ==
[~2017-05-06] VITALS: Ht 170.2 cm; Wt 130.0 kg
[2017-05-06 18:34] VITALS: Ht 170.2 cm; Wt 130.0 kg
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
[2017-05-06 20:51] LABS: BASOPHILS % 0.5 % (0.0-2.0); EOSINOPHILS # 0.1 10^3/ul (0.0-0.5); HEMATOCRIT 43.2 % (42.0-52.0); HEMOGLOBIN 15.2 g/dl (14.0-18.0); LYMPHOCYTES # 0.8 10^3/ul (0.8-2.9); LYMPHOCYTES % 13.2 % (15.0-51.0); MEAN CORPUSCULAR HEMOGLOBIN 30.5 pg (29.0-33.0); MEAN CORPUSCULAR HGB CONC 35.2 g/dl (32.0-37.0); MEAN CORPUSCULAR VOLUME 86.6 fl (82.0-101.0); MEAN PLATELET VOLUME 11.5 fl (7.4-10.4); MONOCYTE # 0.8 10^3/ul (0.3-0.9); MONOCYTES % 12.7 % (0.0-11.0); NEUTROPHIL # 4.4 10^3/ul (1.6-7.5); NEUTROPHILS % 71.9 % (39.0-77.0); PLATELET COUNT 221 10^3/UL (140-415); RED BLOOD COUNT 4.99 10^6/ul (4.70-6.10); RED CELL DISTRIBUTION WIDTH 11.9 % (11.5-14.5); WHITE BLOOD COUNT 6.2 10^3/ul (4.8-10.8)
[2017-05-06 21:09] LABS: INR 0.98; PARTIAL THROMBOPLASTIN TIME 25.8 Sec (25.0-35.0); PROTIME 13.1 Sec (11.9-14.9)
[2017-05-06 21:16] LABS: ALANINE AMINOTRANSFERASE 45 IU/L (13-69); ALBUMIN 3.7 g/dl (3.3-4.9); ALBUMIN/GLOBULIN RATIO 1.05; ALKALINE PHOSPHATASE 98 IU/L (42-121); AMYLASE 41 U/L (11-123); ANION GAP 15 (8-16); ASPARTATE AMINO TRANSFERASE 33 IU/L (15-46); BILIRUBIN,INDIRECT 0.7 mg/dl (0-1.1); BILIRUBIN,TOTAL 0.7 mg/dl (0.2-1.3); BLOOD UREA NITROGEN 6 mg/dl (7-20); CALCIUM 9.2 mg/dl (8.4-10.2); CARBON DIOXIDE 21 mmol/L (21-31); CHLORIDE 100 mmol/L (97-110); GLUCOSE 337 mg/dl (70-220); SODIUM 132 mmol/L (135-144); TOTAL PROTEIN 7.2 g/dl (6.1-8.1)
[2017-05-06] MEDS ORDERED: SOD CHLORIDE 0.9% 1,000 ML IV ONE (21:30)
[2017-05-06 21:36] LABS: TROPONIN-I < 0.012 ng/ml (0.00-0.12)
[2017-05-06] MEDS ORDERED: KETOROLAC 30 MG INJ IV STA (22:14)
[2017-05-06 22:56] LABS: ADD UMIC YES; UR ASCORBIC ACID NEGATIVE (NEGATIVE); UR BACTERIA FEW /HPF (NONE SEEN); UR BILIRUBIN (Dip) NEGATIVE (NEGATIVE); UR BLOOD (Dip) 2+ mg/dL (NEGATIVE); UR CLARITY SLIGHTLY CLOUDY (CLEAR); UR COLOR YELLOW (YELLOW); UR GLUCOSE (Dip) 3+ mg/dL (NEGATIVE); UR KETONES (Dip) 1+ mg/dL (NEGATIVE); UR LEUKOCYTE ESTERASE (Dip) 2+ Leu/ul (NEGATIVE); UR NITRITE (Dip) NEGATIVE (NEGATIVE); UR RBC 24 /HPF (0-5); UR SPECIFIC GRAVITY (Dip) 1.038 (1.003-1.030); UR SQUAMOUS EPITHELIAL CELL MODERATE /HPF (FEW); UR TOTAL PROTEIN (Dip) 1+ mg/dl (NEGATIVE); UR UROBILINOGEN (Dip) NEGATIVE (NEGATIVE)
--- NOTE | 2017-05-06 23:07 | RADRPT ---
PROCEDURE: CT abdomen and pelvis without contrast. CLINICAL INDICATION: Abdominal Pain TECHNIQUE: CT scan of the abdomen and pelvis without contrast was performed and is reconstructed a t 2.5 mm contiguous axial intervals from the dome of the diaphragm to the inferior pubic rami.. The patient was scanned without intravenous contrast. Sagittal and coronal reformatted images were obt ained from the axial source images. The calculated radiation dose measures 23 mGy centimeters. The C TDI measures eighth 1393 mGy. Individualized dose optimization technique was used for the performance of this exam. This included 1. Automated exposure control. 2. Adjustment of the mA and / or kV according to the patient's size. 3. Use of iterative reconstructed technique. COMPARISON: CT abdomen pelvis March 02, 2017 FINDINGS: The lung bases are clear of any infiltrate or nodule. No effusion is seen. Liver is enlarged measuring 23 cm. There is fatty infiltration. No mass or ductal dilatation is pres ent. Gallbladder has been removed. No splenic, adrenal or pancreatic abnormalities present. surgica l clips are noted in the splenic hilum. Kidneys are of normal size and contour. No hydronephrosis, calculus or masses seen. Ureters are o f normal course and caliber with no stone. No bladder mass or stone is present. Prostate and semina l vesicles are normal. There is no aneurysm. No adenopathy is present. No bowel mass or obstruction is present. The appendix is not confidently seen, however, no inflam ed appendix is noted.. No phlegmon, ascites or pneumoperitoneum is visualized. Noted is a wide vent ral abdominal and pelvic wall hernia containing nonobstructed large and small bowel loops. The osseous structures are intact. IMPRESSION: No evidence of urolithiasis, obstructive uropathy, diverticulitis or appendicitis. Enlarged fatty liver. Post cholecystectomy. Large ventral wall abdominal and pelvic hernia containing nonobstructed bowel. .Mayo Hernandez MD, Date Time Electronically viewed and signed by .Mayo Hernandez MD, on 05/06/2017 23:06 .A/
[2017-05-06] MEDS ORDERED: CIPR500T4 PO (23:33)
[2017-05-06] MEDS ORDERED: FAMO-96 PO (23:34)
[2017-05-06] MEDS ORDERED: DOCU-144 PO (23:34)
[2017-05-06 23:41] LABS: BARBITURATES Negative (NEGATIVE); BENZODIAZEPINES Negative (NEGATIVE); CANNABINOIDS Positive (NEGATIVE)
[2017-05-07] LABS: COCAINE Negative (NEGATIVE); OPIATES Negative (NEGATIVE)
[2017-05-07] MEDS ORDERED: SOD CHLORIDE 0.9% 1,000 ML IV ONE (00:30)
[2017-05-07] MEDS ORDERED: CEFTRIAXONE 1 GM INJ IM ONE ×2 (00:30)
[2017-05-07] MEDS ORDERED: CEFTRIAXONE 1 GM/50 ML (PMX) 50 ML IVPB ONE (00:30)
[2017-05-07 00:45] VITALS: BP 134/85; PULSE 96; RESP 20; TEMP 99.3
== END 2017-05-07 02:12 | disposition home or self-care (01) ==
LOC: FTE 18:31
DX: N39.0 Urinary tract infection, site not specified (principal); I10 Essential (primary) hypertension; E11.9 Type 2 diabetes mellitus without complications; Z79.4 Long term (current) use of insulin; Z79.84 Long term (current) use of oral hypoglycemic drugs; Z87.891 Personal history of nicotine dependence
CPT/HCPCS: 74176; 80053; 80307; 81001; 82150; 82962; 83690; 84484; 85025; 85610; 85730; 93005; 96361; 96374; 96375; J0696; J1885; J7030; Z7502

== ENCOUNTER 2017-08-28 12:06 | Emergency (ER) | END 2017-08-28 15:42 | disposition home or self-care (01) ==